=== PATIENT | male | born 1995 | race Two or more races ===

== ENCOUNTER 2023-05-16 16:07 | Emergency (ER) | payer SELFPAY ==
--- NOTE | ~2023-05-16 | XR_ITS ---
EXAMINATION: XR chest 2V 05/16/2023 17:05 INDICATION: Cough with fever PROCEDURE: 2 view chest COMPARISON: No prior studies for comparison. FINDINGS: There is subtle basilar airspace disease posteriorly on the lateral view which may represen t atelectasis or developing pneumonia. The cardiomediastinal silhouette is within normal limits. The re are no pleural effusions. There is no pneumothorax suspected. There are surgical changes of the right mid thorax. IMPRESSION: 1: Subtle posterior basilar airspace disease on the lateral view, atelectasis versus developing pneu monia.. Reviewed, dictated and finalized at location A. IMPRESSION: 1: Subtle posterior basilar airspace disease on the lateral view, atelectasis versus developing pneumonia..
--- NOTE | ~2023-05-16 | CT_ITS ---
EXAMINATION: CT abdomen pelvis wo con DATE: 05/16/2023 17:42 INDICATION: Left flank pain, hematuria. TECHNIQUE: Computed tomography (CT) of the abdomen and pelvis was performed without intravenous contr ast. The dose-length product was 314.46 mGy-cm. Automated exposure control and iterative reconstructi on technique were employed. COMPARISON: None. FINDINGS: There are reticulonodular densities of the lower lobes, left greater than right, consistent with pneumonia. Heart size normal. No significant pleural or pericardial effusion. The liver, spleen , pancreas, adrenal glands and kidneys are unremarkable. Gallbladder is present. No free air or free fluid. Nonobstructive bowel pattern. 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 Bladder wall is mildly thickened. IMPRESSION: 1. Bilateral lower lobe reticulonodular densities, left greater than right, compatible with pneumonia . 2: Mild bladder wall thickening. Consider cystitis in the appropriate clinical setting. Reviewed, dictated and finalized at location A. IMPRESSION: 1. Bilateral lower lobe reticulonodular densities, left greater than right, com patible with pneumonia. 2: Mild bladder wall thickening. Consider cystitis in the appropriate clinical setting.
[2023-05-16 16:11] VITALS: BP 124/95; PULSE 115; RESP 18; TEMP 37.6; O2SAT 100
--- NOTE | 2023-05-16 16:40 | ED.BACK ---
HPI - Back Pain/Injury General Chief Complaint: Back Pain/Injury Stated Complaint: left flank pain Time Seen by Provider: 05/16/23 16:23 History of Present Illness HPI Narrative: Patient is a 27-year-old male here for evaluation of fever, cough, congestion and body aches x5 days. Patient states he had a productive cough of clear sputum. Took Tylenol 3 days ago for subjective fever with transient relief, none since. He has not yet taken his temperature at home. States that this morning he started to have a pain in his right low back worse with cough which prompted his ED evaluation. He denies any shortness of breath, nausea or vomiting, sore throat, ear pain. He has not yet taken a COVID test. Related Data Allergies Allergy/AdvReac Type Severity Reaction Status Date / Time No Known Allergies Allergy Verified 05/16/23 16:08 Review of Systems Review of Systems: Gen: Reports fever Eyes: Denies eye pain or visual change ENT: Denies congestion Respiratory: Reports cough CV: Denies chest pain or palpitations GI: Denies abdominal pain nausea, emesis or diarrhea : denies burning, urgency, frequency or hematuria Musculoskeletal: Denies back pain or muscle pain Neuro: Denies numbness, tingling, weakness or focal weakness Skin: Denies rash Except as documented, all other systems reviewed and negative Exam Narrative: APPEARANCE: No acute distress, nontoxic, resting in bed EYES: EOMI HEENT: posterior oropharynx is clear. Normocephalic, atraumatic, OMM RESPIRATORY: Coarse breath sounds throughout lung yeh. No respiratory distress CARDIOVASCULAR: Regular rate and rhythm without murmurs rubs or gallops. ABDOMINAL: no CVAT. Soft, nontender, nondistended, no rebound or guarding MUSCULOSKELETAl: no tenderness to palpation along the midline of the cervical, thoracic or lumbar spine. NEURO: Awake and alert. Following commands, speech normal, no focal deficits SKIN: Warm, dry. No rashes lesions or abrasions PSYCHIATRIC: Normal affect/mood Course Vital Signs Vital signs: Vital Signs Temperature 99.7 F H 05/16/23 16:11 Pulse Rate 115 H 05/16/23 16:11 Respiratory Rate 18 05/16/23 16:11 Blood Pressure 124/95 H 05/16/23 16:11 Pulse Oximetry 100 05/16/23 16:11 Oxygen Delivery Room Air 05/16/23 16:11 Temperature 99.7 F H 05/16/23 16:11 Pulse Rate 115 H 05/16/23 16:11 Respiratory Rate 18 05/16/23 16:11 Blood Pressure 124/95 H 05/16/23 16:11 Pulse Oximetry 100 05/16/23 16:11 Oxygen Delivery Room Air 05/16/23 16:11 MDM - Back Pain/Injury MDM Narrative Medical decision making narrative: 27 year old male here for evaluation of cough, fever, myalgias concentrated in the left flank x 7 days. Patient initially slightly tachycardic to 115 with low grade fever at 99.7. CXR with subtle pneumonia. White count is 15.5. Lactic acid is negative. CMP unremarkable aside from slight hyponatremia to 133. COVID/flu negative. ua with blood; CT abd pelvis obtained to r/o septic stone which showed no abdominal/pelvic process but does show pneumonia in the left lower lobe. blader w/ possible cystitis but UA does not look infected and he is not having any symptoms of UTI. Patient reassessed; HR improved after fluids, Tylenol brought down low grade fever. he is low risk by psi and curb-65. Shared decision making used; patient wants to go home to try outpatient abx for pneumonia although admission was offered. Strict return precautions given and he voiced understanding. Lab Data 05/16/23 16:52 05/16/23 17:34 Labs: Lab Results 05/16/23 05/16/23 05/16/23 Range/Units 16:52 17:02 17:34 WBC 15.5 H (4.5-10.0) K/mm3 RBC 4.50 L (4.6-6.20) M/mm3 Hgb 13.5 L (14.0-18.0) g/dL Hct 39.2 L (42.0-52.0) % MCV 87.1 (80-100) fl MCH 30.0 (26-34) pg MCHC 34.4 (32-36) g/dl RDW 11.7 (11.5-14.5) % Plt Count 279 (150-375) k/mm3 MPV 10.6 H (7.4-10.4
--- NOTE | 2023-05-16 17:00 | PC.NURSE ---
called lab at this time to add on monotest to specimen previously collected
[2023-05-16 17:02] LABS: Basophils Absolute Auto 0.1 K/mm3 (0.0-0.1); Basophils Percent Auto 0.5 % (0.2-1.2); Eosinophils Absolute Auto 0.2 K/mm3 (0-0.3); Eosinophils Percent Auto 1.2 % (0-4.4); Hematocrit 39.2 % (42.0-52.0); Hemoglobin 13.5 g/dL (14.0-18.0); Immature Granulocyte Absolute 0.08 K/mm3 (0.00-0.031); Immature Granulocyte Percent A 0.5 % (0-0.5); Lymphocytes Absolute Auto 2.02 K/mm3 (0.9-3.2); Mean Corpuscular HGB Conc 34.4 g/dl (32-36); Mean Corpuscular Volume 87.1 fl (80-100); Mean Platelet Volume 10.6 fl (7.4-10.4); Monocytes Percent Auto 6.2 % (2.6-8.5); Neutrophils Absolute Auto 12.2 K/mm3 (1.3-6.7); Neutrophils Percent Auto 78.6 % (45.5-73.1); Platelet Count Result 279 k/mm3 (150-375); Red Cell Distribution Width 11.7 % (11.5-14.5); White Blood Count 15.5 K/mm3 (4.5-10.0)
[2023-05-16] MEDS: ACETAMINOPHEN 500 MG TABLET 1000 MG PO (17:05)
[2023-05-16 17:10] LABS: Appearance Urine Clear (Clear); Bacteria Urine None Seen /hpf; Bilirubin Urine Negative (Negative); Blood Urine 1+ (Negative); Color Urine Yellow (Yellow); Glucose Urine UA Negative (Negative); Ketones Urine 4+ mg/dL (Negative); Leukocyte Esterase Ur Trace LEU/UL (Negative); Nitrate Urine Negative (Negative); Non Pathogenic Casts 0-2; Protein Urine Negative (Negative); Specific Grav Ur 1.021 (1.001-1.035); Squamous Epithelial Cell Urine None seen /hpf (Few); Urobilinogen Urine 0.2 mg/dL (<2.0); WBC Urine 0-5 /hpf; pH Urine 5.5 (5.0-9.0)
[2023-05-16 17:11] LABS: Add Urine Microscopic? YES
[2023-05-16 17:14] LABS: Lactic Acid Reflex 1.2 mmol/L (0.7-2.0)
[2023-05-16] MEDS: SODIUM CHLORIDE 0.9% IV 1,000 ML 999 ML IV CONT ×2 (17:34→18:18)
[2023-05-16 17:42] LABS: Influenza A QL RT-PCR Negative (Negative); Influenza B QL RT-PCR Negative (Negative); SARS-CoV-2 RNA PCR Negative (Negative)
[2023-05-16 17:59] LABS: Alanine Aminotransferase 43 U/L (6-50); Alkaline Phosphatase 83 U/L (38-126); Anion Gap 5 mmol/L (8-16); Aspartate Amino Transferase 34 U/L (17-59); Bilirubin,Total 0.8 mg/dL (0.2-1.3); Blood Urea Nitrogen 10 mg/dL (9-20); Calcium 8.8 mg/dL (8.4-10.2); Carbon Dioxide 30 mmol/L (22-30); Chloride 98 mmol/L (98-107); Estimated CRCL calculation 134 ml/min; Estimated Glomerular Filt Rate > 60; Glucose 101 mg/dL (65-110); Potassium 3.6 mmol/L (3.4-5.0); Sodium 133 mmol/L (137-145)
[2023-05-16] MEDS: AMOXICILLIN/CLAVULANATE K 875-125 MG TAB 1 TABLET PO (18:18)
[2023-05-16] MEDS: AZITHROMYCIN 250 MG TABLET 500 MG PO (18:18)
[2023-05-16 20:29] LABS: Monoscreen Negative (Negative); Negative Monotest Control Negative (Negative); Positive Monotest Control Positive (Positive)
== END 2023-05-16 19:20 | disposition home or self-care (01) ==
PROVIDERS: Emergency Provider Physician Assistant
DX: J18.9 Pneumonia, unspecified organism (principal); Z20.822 Contact with and (suspected) exposure to COVID-19
CPT/HCPCS: 36415; 71046; 74176; 80053; 81001; 83605; 85025; 86308; 87636; 96360; 99284; A9270; J7030

== ENCOUNTER 2024-01-01 16:01 | Emergency (ER) | payer SELFPAY ==
--- NOTE | ~2024-01-01 | XR_ITS ---
EXAMINATION: XR chest 2V DATE: 01/01/2024 17:18 INDICATION: Fever, cough, shortness of breath. TECHNIQUE: Frontal and lateral views of the chest were obtained. COMPARISON: Chest 2 views 05/16/2023, CT abdomen and pelvis 05/16/2023 FINDINGS: There is no pneumonia, pleural effusion, or pneumothorax. The heart size is normal. IMPRESSION: 1. No acute cardiopulmonary disease. Reviewed, dictated and finalized at location A. [employer]
[2024-01-01 16:58] VITALS: BP 142/83; PULSE 102; RESP 17; TEMP 39.1; O2SAT 98
[2024-01-01 17:50] LABS: Influenza A QL RT-PCR Positive (Negative); Influenza B QL RT-PCR Negative (Negative); RSV RNA, RT-PCR Negative (Negative); SARS-CoV-2 RNA PCR Negative (Negative)
[2024-01-01 20:00] VITALS: O2SAT 99
--- NOTE | 2024-01-01 20:18 | ED.GENADULT ---
HPI - General Adult General Chief complaint: Upper Respiratory Infection Stated complaint: headache, bodyaches, coughing, fevers Time Seen by Provider: 01/01/24 19:42 Source: patient Mode of arrival: ambulatory Limitations: no limitations History of Present Illness HPI narrative: This is a 28-year-old male who presents to the ED with chief complaint of cough congestion, body aches and fevers for the past 9 days. Reports he initially had all the symptoms and they got better for short time. He reports over last couple of days he has developed more of a productive cough and fevers. He is taking Tylenol with some relief. endorses little bit headache but denies neck pain or stiffness. Denies chest pain, shortness of breath, abdominal pain. Also notes that his daughter recently had a viral illness with conjunctivitis Related Data Allergies Allergy/AdvReac Type Severity Reaction Status Date / Time No Known Allergies Allergy Verified 05/16/23 16:08 Review of Systems Review of Systems: All systems as dictated in HPI Exam Narrative: GENERAL: Well-appearing, well-nourished, and in no acute distress. HEAD: Normocephalic, atraumatic. EYES: PERRLA and EOMI. ENT: Nares clear, no rhinorrhea or epistaxis. Mucous membranes moist. Oropharynx without tonsillar hypertrophy exudate or other lesions. NECK: Supple. No adenopathy or masses. CHEST: No respiratory distress. Clear to auscultation. No wheezes rales or rhonchi HEART: Regular rate and rhythm. No murmur heard. Normal peripheral pulses. ABDOMEN: Soft, nontender, nondistended, normal active bowel sounds. MSK: Normal range of motion. No edema. SKIN: Warm, dry, no rash. NEURO: Alert and oriented x3. No focal deficits. PSYCH: Normal mood and affect. Course Vital Signs Vital signs: Vital Signs Temperature 102.3 F H 01/01/24 16:58 Pulse Rate 102 H 01/01/24 16:58 Respiratory Rate 17 01/01/24 16:58 Blood Pressure 142/83 H 01/01/24 16:58 Pulse Oximetry 98 01/01/24 16:58 Oxygen Delivery Room Air 01/01/24 16:58 Temperature 101 F H 01/01/24 20:57 Pulse Rate 86 01/01/24 20:57 Respiratory Rate 16 01/01/24 20:57 Blood Pressure 136/72 01/01/24 20:57 Pulse Oximetry 99 01/01/24 20:57 Oxygen Delivery Room Air 01/01/24 20:00 Medical Decision Making MDM Narrative Medical decision making narrative: This is a 28-year-old male who presents to the ED with chief complaint of URI symptoms and productive cough. Vitals show he is febrile but otherwise normal. exam is overall benign. Viral swabs are positive for flu. Chest x-ray is unremarkable. He has been having symptoms for the past 9 days so it is possible he is a little bit of superimposed pneumonia developing. Prescription for Augmentin and doxycycline written. expectant management for URI given. Pt will be discharged in stable condition. Return precautions given and supportive measures discussed. Pt is understanding and agreeable with plan for discharge and follow-up with PCP. Vital Signs Vital Signs: Vital Signs Temperature 102.3 F H 01/01/24 16:58 Pulse Rate 102 H 01/01/24 16:58 Respiratory Rate 17 01/01/24 16:58 Blood Pressure 142/83 H 01/01/24 16:58 Pulse Oximetry 98 01/01/24 16:58 Oxygen Delivery Room Air 01/01/24 16:58 Temperature 101 F H 01/01/24 20:57 Pulse Rate 86 01/01/24 20:57 Respiratory Rate 16 01/01/24 20:57 Blood Pressure 136/72 01/01/24 20:57 Pulse Oximetry 99 01/01/24 20:57 Oxygen Delivery Room Air 01/01/24 20:00 Lab Data Labs: Lab Results 01/01/24 Range/Units 17:04 Influenza A (RT-PCR) Positive A (Negative) Influenza B (RT-PCR) Negative (Negative) RSV (RT-PCR) Negative (Negative) SARS-CoV-2 RNA (RT-PCR) Negative (Negative) Discharge Plan Discharge Clinical Impression: Influenza A Patient Disposition: Home, Self-Care Condition: Stable Instructions: Antibiot
[2024-01-01 20:57] VITALS: BP 136/72; PULSE 86; RESP 16; TEMP 38.3; O2SAT 99
[2024-01-01] MEDS: ACETAMINOPHEN 500 MG TABLET 1000 MG PO (20:58)
--- NOTE | 2024-01-01 20:58 | PC.NURSE ---
Upon discharge patient had a 101 fever. Notified EDP MIRA Paredes who VRBO 1,000mg Tylenol PO.
== END 2024-01-01 20:59 | disposition home or self-care (01) ==
LOC: ANHED 20:23
PROVIDERS: Emergency Medicine; Emergency Provider Physician Assistant
DX: J10.1 Influenza due to other identified influenza virus with other respiratory manifestations (principal); Z20.822 Contact with and (suspected) exposure to COVID-19
CPT/HCPCS: 71046; 87637; 99283; A9270